=== PATIENT | male | born 2000 | race Caucasian/White ===

== ENCOUNTER 2020-08-10 15:26 | Inpatient (IN) | payer OTHER ==
[~2020-08-10] VITALS: Ht 180.3 cm; Wt 76.8 kg
[2020-08-10 16:43] LABS: HEMATOCRIT 45.2 % (42.0-52.0); HEMOGLOBIN 15.2 g/dl (13.5-17.5); MEAN CORPUSCULAR HEMOGLOBIN 31.2 pg (27.0-33.0); MEAN CORPUSCULAR HGB CONC 33.6 g/dl (32.0-36.5); MEAN CORPUSCULAR VOLUME 92.8 fl (80.0-96.0); PLATELET COUNT, AUTOMATED 294 10^3/uL (150-450); RED BLOOD COUNT 4.87 10^6/uL (4.30-6.10); WHITE BLOOD COUNT 8.5 10^3/uL (4.0-10.0)
[2020-08-10 17:08] LABS: AMPHETAMINES LEVEL URINE NEGATIVE (NEGATIVE); BARBITURATES URINE NEGATIVE (NEGATIVE); BENZODIAZEPINES URINE NEGATIVE (NEGATIVE); CANNABINOIDS URINE NEGATIVE (NEGATIVE); COCAINE METABOLITE URINE NEGATIVE (NEGATIVE); METHADONE URINE NEGATIVE (NEGATIVE); OPIATES URINE NEGATIVE (NEGATIVE); PHENCYCLIDINE URINE NEGATIVE (NEGATIVE)
[2020-08-10 17:21] LABS: ACETAMINOPHEN LEVEL < 2.0 UG/ML (10.0-30.0); ALBUMIN 4.5 GM/DL (3.2-5.2); ALT/SGPT 43 U/L (12-78); BILIRUBIN,DIRECT 0.2 MG/DL (0.0-0.2); BILIRUBIN,TOTAL 0.5 MG/DL (0.2-1.0); BLOOD UREA NITROGEN 16 MG/DL (7-18); CALCIUM LEVEL 9.8 MG/DL (8.5-10.1); CARBON DIOXIDE LEVEL 26 MEQ/L (21-32); CHLORIDE LEVEL 106 MEQ/L (98-107); ETHYL ALCOHOL (ETHANOL) < 0.003 % (0.000-0.010); GLUCOSE, FASTING 98 MG/DL (70-100); POTASSIUM SERUM 4.2 MEQ/L (3.5-5.1); SALICYLATE LEVEL < 1.7 MG/DL (5.0-30.0); SODIUM LEVEL 139 MEQ/L (136-145); THYROID STIMULATING HORMONE 0.335 uIU/ML (0.463-3.98); TOTAL PROTEIN 7.9 GM/DL (6.4-8.2)
[2020-08-10 19:33] LABS: RSV AMPLIFICATION NEGATIVE (NEGATIVE)
[2020-08-10] MEDS ORDERED: MOM 30ML SUSPENSION UDC PO PRN (20:10)
[2020-08-10] MEDS ORDERED: traZODone 50 MG TAB PO PRN (20:10)
[2020-08-10] MEDS ORDERED: MAALOX 30 ML SUSP *UDC PO PRN (20:10)
[2020-08-10] MEDS ORDERED: ACETAMINOPHEN TAB 650MG DOSE (2X325MG) PO PRN (20:10)
[2020-08-10] MEDS ORDERED: OLANZapine ORAL DISINTEGRATING TAB 5MG PO PRN (20:10)
[2020-08-10] MEDS ORDERED: IBUPROFEN 400MG TAB PO PRN (20:10)
[2020-08-10 21:08] VITALS: BP 121/72
[2020-08-11] MEDS: FLUoxetine 10 MG CAP PO SCH (09:47)
--- NOTE | 2020-08-11 12:06 | MHHPE ---
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 CHIEF COMPLAINT: "I've been stressed out in the [employer]." HISTORY OF PRESENT ILLNESS: Patient broke up with his girlfriend about three days ago. He felt extremely suicidal. He also had extreme stress of the life, wanted to hurt himself but did not have any plans. He told his sergeant and he was brought to the hospital. Patient reports he has been depressed for the last two months, which has worsened recently, complains of decreased sleep, decreased appetite, decreased energy, worthlessness, hopelessness and helplessness. Denies any manic episodes. Patient has history of panic disorder without agoraphobia. PAST PSYCHIATRIC HISTORY: He was having suicidal thoughts when he was 16 because of family issues. He thought of jumping off from the fourth floor, but decided against it. Never been hospitalized, never been on antidepressants before. DRUG/ALCOHOL HISTORY: Patient denies drug and alcohol problems. MEDICAL HISTORY: Patient denies medical issues. FAMILY HISTORY: Denies family history of mental illness. SOCIAL HISTORY: Patient was born and raised in [place]. He was raised by his mother and stepfather. He has three half-siblings. He graduated from high school. Denies any history of physical abuse, though his mother was trying to discipline him at times. Denies any sexual abuse. MENTAL STATUS EXAMINATION: Tall, well-built, cooperative. Made good eye contact. Psychomotor activity is normal. Speech is somewhat stuttering, fast. Denies any auditory or visual hallucinations. Mood is depressed. Affect is constricted. Thought content: Denies any suicidal thoughts currently; however, he feels hopeless and helpless. His insight and judgment are fair. Memory: Immediate, remote, recent are good. REVIEW OF SYSTEMS: CONSTITUTIONAL: Denies any fever, night sweats, loss of weight. HEENT: Denies sore throat, epistaxis, headache. RESPIRATORY: Denies cough or shortness of breath. CARDIOVASCULAR: Denies chest pain or palpitations. GASTROINTESTINAL: Denies any abdominal pain, change in bowel habits. GENITOURINARY: Denies dysuria or hematuria. NEUROLOGIC: Denies any numbness, tingling or dizziness. MUSCULOSKELETAL: Denies any joint pain or joint swelling. VITAL SIGNS: Temperature 98.9, pulse 61, respiratory rate 16, blood pressure 115/66, pulse oximetry 98. LABORATORY STUDIES: CBC within normal limits. Chemistry: CMP within normal limits. TSH was slightly low. We will repeat it. His toxicology was negative. DIAGNOSES: 1. Major depressive disorder. 2. Panic disorder without agoraphobia. PLAN: 1. Admit to inpatient mental health unit (IM). 2. He will be seen by hospitalist for medical needs. 3. He will be kept on suicide precaution. 4. Patient will receive individual, group and milieu therapy. 5. Patient will be seen by rn social services and case management. MEDICATIONS: - Prozac 10 mg once daily ESTIMATED LENGTH OF STAY: 4-5 days. TIME SPENT: 30 minutes.
[2020-08-11 16:14] VITALS: BP 136/62
--- NOTE | 2020-08-11 18:13 | HPEPDOC ---
General Date of Admission Aug 10, 2020 at 20:07 Date of Service: Aug 11, 2020 Chief Complaint The patient is a 19-year-old male admitted with a reason for visit of Mental Health. 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 He was brought in by his MIO. He is being examined here for medical history and p hysical. He denied any complaints today. Home Medications No Active Prescriptions or Reported Meds Allergies Coded Allergies: No Known Allergies (Unverified , 08/10/20) Past Medical History Medical History Asthma as a child Surgical History right shoulder surgery in 2019 Family History Significant Family History: No pertinent family hx discussed with patient Social History * Smoker: non-smoker Alcohol: Denies Drugs: denies A-FIB/CHADSVASC A-FIB History Current/History of A-Fib/PAF?: No Review of Systems Constitutional: Denies: Chills, Fever, Night Sweats Eyes: Denies: Pain, Vision change ENT: Denies: Head Aches, Ear Pain, Dysphagia Skin: Denies: Rash, Lesions, Breakdown Pulmonary: Denies: Dyspnea, Cough Cardiovascular: Denies: Chest Pain, Palpitations, Orthopnea, Paroxysmal Noc. Dyspnea, Lt Headedness Gastrointestinal: Denies: Nausea, Vomiting, Abdominal Pain, Diarrhea Genitourinary: Denies: Dysuria, Frequency, Incontinence, Retention Hematologic: Denies: Bruising, Bleeding Excessively Musculoskeletal: Denies: Neck Pain, Back Pain, Joint Pain, Muscle Pain, Spasms Neurological: Denies: Weakness, Numbness, Change in speech, Confusion Physical Examination General Exam: Positive: Alert, Cooperative, No Acute Distress Eye Exam: Positive: Conjunctiva & lids normal, EOMI; Negative: Sclera icteric ENT Exam: Positive: Atraumatic, Mucous membr. moist/pink, Pharynx Normal Neck Exam: Positive: Supple; Negative: JVD, thyromegaly Chest Exam: Positive: Clear to auscultation, Normal air movement Heart Exam: Positive: Rate Normal, Regular Rhythm, Normal S1, Normal S2; Negative: Murmurs, Rubs Abdomen Exam: Positive: Normal bowel sounds, Soft; Negative: Tenderness, Hepatospenomegaly Extremity Exam: Negative: Clubbing, Cyanosis, Edema Skin Exam: Positive: Nl turgor and temperature; Negative: Breakdown, Lesion Neuro Exam: Positive: Normal Gait, Normal Speech, Strength at 5/5 X4 ext, Normal Tone, Cranial Nerves 3-12 NL Psych Exam: Positive: Mood NL, Oriented x 3 Vital Signs Vital Signs Date Time Temp Pulse Resp B/P (MAP) Pulse Ox O2 Delivery O2 Flow Rate FiO2 08/11/20 16:14 98.1 64 16 136/62 (86) 96 Room Air Laboratory Data Labs 24H Laboratory Tests 2 08/10/20 18:45: Coronavirus (COVID-19)(PCR) NEGATIVE, Influenza Type A (RT-PCR) NEGATIVE, Influenza Type B (RT-PCR) NEGATIVE, Respiratory Syncytial Virus (PCR) NEGATIVE Assessment/Plan 19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 He was brought in by his MIO. He is being examined here for medical history and physical. Depression as per psychiatry No active medical issues at this time. Plan / VTE VTE Prophylaxis Ordered?: No (ambulatory freely) FILIPPO BENTON MD Aug 11, 2020 18:12
[2020-08-12 06:25] VITALS: BP 144/72
[2020-08-12] MEDS: FLUoxetine 10 MG CAP PO SCH (09:03)
--- NOTE | 2020-08-12 12:49 | MHIPN ---
[facility] PROGRESS NOTE DATE: 08/12/2020 VITAL SIGNS: Blood pressure 144/72, pulse 61, temperature 98.3. This is a video assessment. CHIEF COMPLAINT: Says feels okay. SUBJECTIVE: Seen for followup. Indicates feels okay. Somewhat less anxious. Says less "emotional" and does not have any thoughts of hurting himself. He suggests he has struggling for the last couple of weeks or so and that he generally has a hard time with anxiety, more so than possibly others realize. MENTAL STATUS EXAMINATION: Neat, cooperative, though a bit guarded. No agitation. No psychomotor retardation. He is coherent. Affect is reactive, though a bit restricted. Denies any thoughts of harming himself or anyone else. No evidence of any psychosis. Cognition grossly intact. Judgment and insight, though possibly improved, seem compromised. ASSESSMENT: 1. Major depressive disorder. 2. Panic disorder without agoraphobia. PLAN: Continue Prozac 10 mg daily. Need to titrate it up. Continue encouraging him to participate in activities at present. I would suggest looking at obtaining collateral information if possible. The possibility of generalized anxiety also needs to be considered. Further recommendations will be made depending on the clinical picture.
[2020-08-12 16:07] VITALS: BP 141/73
[2020-08-13 06:22] VITALS: BP 122/59
[2020-08-13] MEDS: FLUoxetine 10 MG CAP PO SCH (08:34)
[2020-08-13] MEDS ORDERED: FLUoxetine 10 MG CAP PO ONE (13:30)
[2020-08-13 16:22] VITALS: BP 135/64
--- NOTE | 2020-08-13 18:26 | MHIPN ---
[facility] PROGRESS NOTE DATE: 08/13/2020 VITAL SIGNS: Blood pressure 122/69, pulse 68, temperature 98.7. CHIEF COMPLAINT: Says is doing okay. SUBJECTIVE: Seen for followup, this is via video. Says is doing okay and that today is "like yesterday." Suggests feels a bit bored here. Slept okay. Appetite has been good. MENTAL STATUS EXAMINATION: Neat, cooperative though possibly a bit guarded. No agitation, no psychomotor retardation. Answers questions briefly, logically, and he is coherent. Affect is restricted in range, but shows reactivity. He denies any thoughts of harming himself or anyone else, no evidence of any psychosis. Cognition is grossly intact. Judgment and insight fair. ASSESSMENT: Major depressive disorder. Panic disorder without agoraphobia. PLAN: Prozac will be increased to 20 mg daily. The rationale for doing so, as well as the drawbacks, are discussed. He will be encouraged to participate in activities as indicated. He will be seeing the assigned clinician tomorrow.
[2020-08-14 07:15] VITALS: BP 137/65
[2020-08-14] MEDS: FLUoxetine 20 MG CAP PO SCH (09:00)
[2020-08-14] MEDS ORDERED: FLUO20CA22 PO (15:23)
--- NOTE | 2020-08-14 15:29 | MHIPNPDOC ---
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 He felt extremely suicidal. He also had extreme stress of the life, wanted to hurt himself but did not have any plans. He told his sergeant and he was brought to the hospital. Patient reports he has been depressed for the last two months, which has worsened recently, complains of decreased sleep, decreased appetite, decreased energy, worthlessness, hopelessness and helplessness. Denies any manic episodes. Patient has history of panic disorder without agoraphobia. VITAL SIGNS: See below. CURRENT MEDICATIONS: See below. 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 Denies suicidal/homicidal ideati on, planning or intent. Abstract reasoning, and computation: fair Description of associations: denies, none observed Description of abnormal or psychotic thoughts: denies, none observed. Judgment: fair Insight: fair Orientation: alert and oriented to person, place, time and situation Recent and remote memory: intact Attention span and concentration: good Language: expansive Fund of knowledge: average Mood: Euthymic Mood Affect: reactive DIAGNOSES: 1. Major depressive disorder. 2. Panic disorder without agoraphobia. ASSESSMENT: Patient seen today "I am ok, still off" Reporting that the [employer] is not right for him. States that he has been having depressive symptoms for awhile and has not been happy "The [employer] is not the right for me." Patient had discovered that his girlfriend was seeing someone else, and she broke up with him. "That was the icing on the cake" He states that he was having suicidal thoughts at that point, but he has had them on and off for weeks but the thoughts were getting worse. The break up pushed him over the edge. Today he reports that he is more stable and feels that he is much better, not anxious and wants to get back into the routine of things because he can't work on anything while hospitalized. 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 Discussed coping mechanisms and the anxiety process. Patient is alert and oriented, no depression, mild anxiety, denies current SI/HI, no psychotic symptoms. He is reporting being ready for discharge MANAGEMENT PLAN: Continue all medications, discharge tomorrow TIME SPENT: 25 minutes. Vital Signs Vital Signs Date Time Temp Pulse Resp B/P (MAP) Pulse Ox O2 Delivery O2 Flow Rate FiO2 08/14/20 07:15 98.1 61 20 137/65 (89) 95 Room Air Current Medications Current Medications Medications (Trade) Dose Ordered Sig/Nicholas Route PRN Reason Start Time Stop Time Status Last Admin Dose Admin Acetaminophen (Tylenol Tab) 650 mg Q6HP PRN PO HEADACHE or DISCOMFORT 08/10/20 20:10 Al Hydrox/Mg Hydrox/Simethicone (Mylanta) 30 ml Q4HP PRN PO HEARTBURN/INDIGESTION 08/10/20 20:10 Fluoxetine HCl (PROzac) 10 mg DAILY PO 08/11/20 09:00 08/13/20 13:19 DC 08/13/20 08:34 Fluoxetine HCl (PROzac) 20 mg DAILY PO 08/14/20 09:00 08/14/20 09:00 Home Med (Med Rec Complete!) ASDIRECTED XX 08/10/20 18:50 08/10/20 18:58 DC Ibuprofen (Advil) 400 mg Q6HP PRN PO PAIN 08/10/20 20:10 Cancel Magnesium Hydroxide (Milk Of Magnesia) 30 ml DAILYPRN PRN PO CONSTIPATION 08/10/20 20:10 Olanzapine (ZyPREXA ZYDIS) 5 mg Q4HP PRN PO AGITATION/ ANXIETY 08/10/20 20:10 Trazodone HCl (Desyrel) 50 mg QHSP PRN PO INSOMNIA 08/10/20 20:10 Allergies Coded Allergies: No Known Allergies (Unverified , 08/10/20) GURPREET MAXWELL NP August 14, 2020 15:09
[2020-08-14 18:00] VITALS: BP 140/73
[2020-08-15 06:30] VITALS: BP 126/63
[2020-08-15] MEDS: FLUoxetine 20 MG CAP PO SCH (08:38)
--- NOTE | 2020-08-15 10:00 | MHDSPDOC ---
[facility] Discharge Summary Discharge Summary DATE OF ADMISSION: Aug 10, 2020 at 20:07 DATE OF DISCHARGE: 08/15/2020 1016 DISCHARGE DIAGNOSES: 1. Major depressive disorder. 2. Panic disorder without agoraphobia. 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 He felt extremely suicidal. He also had extreme stress of the life, wanted to hurt himself but did not have any plans. He told his sergeant and he was brought to the hospital. Patient reports he has been depressed for the last two months, which has worsened recently, complains of decreased sleep, decreased appetite, decreased energy, worthlessness, hopelessness and helplessness. Denies any manic episodes. Patient has history of panic disorder without agoraphobia. Consultants Involved: See H + P by Hospitalist TREATMENT AND PROGRESS ON THE UNIT: Patient was admitted to the [facility] on a 9.39 legal status he was afforded the following treatment modalities: 1) Individual Therapy 2) Group Therapy 3) Medication Management 4) Milieu Therapy 5) Safe Environment HOSPITAL COURSE: Patient was admitted to [facility] on a 9.39 legal status after expressing suicidal ideation to his chain of command. During his admission he was agreeable to the treatment modalities. He was engaged in group and individual psychotherapy. He participated in group, interacted with staff and other peers. During his stay he had expressed that he was unsatisfied with the [employer] and that he felt the [employer] was not for him. . He expressed that he doesn't see himself completing the rest of his contract without doing "something stupid". We reinforced with him to seek help by coming back to the hospital or calling the suicide hotline number if he has suicidal ideation. We reinforced with him to stay close to friends and family if has suicidal thoughts. He expressed that he has learned coping skills in group therapies. Says that " I will use the coping skills I learned to face my problems". He says saying that he has a friend in the [employer] who is supportive of him. Says that his commander is supportive of him. States he plans to open up to his friend about his fe elings and lean on him if he needs to. He states he is ready for discharge. Wants to continue with his medication, Prozac, and will follow up with [facility]. DISCHARGE ASSESSMENT: In today's interview, patient is alert and oriented, pts dress is appropriate. Hygiene and grooming is well-kempt. Smiles on approach and is pleasant and engaged in the interview. Denies depression and anxiety. Denies suicidal and homicidal ideation, planning or intent. Denies and is not observed with gabriel, psychotic symptoms of delusions, bizarre thinking, obsessions, paranoia, ruminations illogical thoughts, flight of ideas or having poor insight and judgement. Patient has normal mentation, declines further hospitalization on a voluntary status and meets criteria for discharge today. Patient encouraged to return to hospital if symptoms worsen or change and encouraged to call unit if he/she/they needs to speak to provider for questions regarding medications or care. 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 Speech: Is fluid, conversant, normal rate, tone and volume Language skills are intact Thought processes including: linear and goal oriented Thought content: denies depression and anxiety. Denies suicidal/homicidal ideation, planning or intent. Abstract reasoning, and computation: fair Description of associations: denies, none observed Description of abnormal or psychotic thoughts: denies, none observed. Judgment: fair Insight: fair Orientation: alert and oriented to person, place, time and situation Recent and remote memory: intact Attention span and concentration: good Language: expansive Fund of knowledge: average Mood: Euthymic Mood Affect: reactive MEDICATIONS ON DISCHARGE: See Medication Reconciliation PLAN/FOLLOWUP ARRANGEMENTS: Patient is being discharged to [facility], he is following up at [facility] The amount of time spent in the coordination of care for this patient was approximately 25 minutes. ETOH/Disorder Med Rx ETOH/DRUG DISORDER RX: N/A Vital Signs/I&Os Vital Signs Date Time Temp Pulse Resp B/P (MAP) Pulse Ox O2 Delivery O2 Flow Rate FiO2 08/15/20 06:30 97.9 52 20 126/63 (84) 96 Room Air Medications Scheduled Fluoxetine Hcl (Fluoxetine HCl) 20 Mg Capsule, 20 MG PO DAILY for Depression, #7 Allergies Coded Allergies: No Known Allergies (Unverified , 08/10/20) GURPREET MAXWELL NP August 15, 2020 08:28
== END 2020-08-15 10:55 | disposition home or self-care (01) | DRG 881 ==
LOC: M ED 15:26 → M ED INP 20:07 → M PSY 21:04
PROVIDERS: ADMIT Psychiatry & Neurology Psychiatry; ATTEND Psychiatry & Neurology Psychiatry
DX: F32.9 Major depressive disorder, single episode, unspecified (principal); R45.851 Suicidal ideations; F41.0 Panic disorder [episodic paroxysmal anxiety]